=== PATIENT | male | born 2000 | race Caucasian/White ===

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

== ENCOUNTER 2020-06-26 22:31 | Emergency (ER) | payer BC ==
--- NOTE | 2020-06-27 01:02 | EDM.PDOC ---
ED HPI GENERAL MEDICAL PROBLEM - General Chief Complaint: General Stated Complaint: "doesnt feel well" Time Seen by Provider: 06/27/20 00:53 Source of Information: Reports: Patient History Limitations: Reports: No Limitations - History of Present Illness INITIAL COMMENTS - FREE TEXT/NARRATIVE: This patient is a 19 year old male that presents to the ER. Patient reports that about 3 months ago started having comes and goes right upper/lower abd pain. Patient reports that the pain comes and goes. Patient reports that he has periods of nausea with it too. Patient reports that nothing makes it better or worse. He reports that he also has vomited on occasion with it. Patient reports that today, he vomited once, but this time he had shakes with vomiting x1. This is his reason for coming to the ER tonight because he had shakes with vomiting. Patient reports that he saw Radha in the clinic today and was started on lexapro. He reports taking the medication, then shortly after vomiting. Patient denies fever. No acute abdomen. Duration: Other ("3 months") Location: Reports: Abdomen Quality: Reports: Ache Severity: Mild Improves with: Reports: None Worsens with: Reports: None Associated Symptoms: Reports: Loss of Appetite, Nausea/Vomiting. Denies: Confusion, Chest Pain, Cough, cough w sputum, Diaphoresis, Fever/Chills, Headaches, Malaise, Rash, Seizure, Shortness of Breath, Syncope, Weakness - Related Data Allergies Allergy/AdvReac Type Severity Reaction Status Date / Time No Known Allergies Allergy Verified 06/27/20 00:43 Home Meds: Home Meds Insulin Aspart [NovoLOG] 1 unit ASDIRECTED 03/28/18 [History] Escitalopram [Lexapro] 10 mg PO DAILY 06/27/20 [History] Past Medical History Musculoskeletal History: Reports: Neck Pain, Chronic Neurological History: Reports: Concussion, Headaches, Chronic Psychiatric History: Reports: Anxiety Endocrine/Metabolic History: Reports: Diabetes, Type I - Past Surgical History Musculoskeletal Surgical History: Reports: None Social & Family History - Family History Family Medical History: No Pertinent Family History - Tobacco Use Tobacco Use Status *Q: Never Tobacco User - Recreational Drug Use Recreational Drug Use: No ED ROS GENERAL - Review of Systems Review Of Systems: See Below Constitutional: Reports: Malaise, Fatigue, Decreased Appetite HEENT: Reports: No Symptoms Respiratory: Reports: No Symptoms Cardiovascular: Reports: No Symptoms Endocrine: Reports: No Symptoms GI/Abdominal: Reports: Abdominal Pain, Diarrhea, Nausea, Vomiting : Reports: No Symptoms Musculoskeletal: Reports: No Symptoms Skin: Reports: No Symptoms Neurological: Reports: Dizziness, Tremors. Denies: Confusion, Headache, Numbness, Seizure, Syncope, Tingling, Trouble Speaking, Difficulty Walking, Weakness, Change in Speech, Gait Disturbance Psychiatric: Reports: Anxiety Hematologic/Lymphatic: Reports: No Symptoms Immunologic: Reports: No Symptoms ED EXAM, GENERAL - Physical Exam Exam: See Below Exam Limited By: No Limitations General Appearance: Alert, WD/WN, No Apparent Distress, Anxious Eye Exam: Bilateral Eye: Normal Inspection, PERRL Ears: Normal External Exam, Normal Canal, Hearing Grossly Normal, Normal TMs Ear Exam: Bilateral Ear: Auricle Normal, Canal Normal, TM normal Nose: Normal Inspection, Normal Mucosa, No Blood Throat/Mouth: Normal Inspection, Normal Lips, Normal Teeth, Normal Gums, Normal Oropharynx, Normal Voice, No Airway Compromise Head: Atraumatic, Normocephalic Neck: Normal Inspection, Supple, Non-Tender, Full Range of Motion Respiratory/Chest: No Respiratory Distress, Lungs Clear, Normal Breath Sounds, No Accessory Muscle Use Cardiovascular: Normal Peripheral Pulses, Regular Rate, Rhythm, No Edema, No Gallop, No JVD, No Murmur, No Rub Peripheral Pulses: 2+: Radial (L), Radial (R), Posterior Tibial (L), Posterior Tibial (R) GI/Abdominal: Normal Bowel Sounds, Soft, Non-Tender, No Organomegaly, No Distention, No Abnormal Bruit, No Mass, Pelvis Stable. No: Distended, Guarding, Rigid, Rebound, Tender Back Exam: Normal Inspection, Full Range of Motion Extremities: Normal Inspection, Normal Range of Motion, Non-Tender, No Pedal Edema, Normal Capillary Refill Neurological: Alert, Oriented, Normal Cognition, Normal Gait Psychiatric: Anxious Skin Exam: Warm, Dry, Intact, Normal Color, No Rash Lymphatic: No Adenopathy Course - Vital Signs Last Recorded V/S: Last Vital Signs Temp 98.5 F 06/27/20 00:30 Pulse 83 06/27/20 00:30 Resp 18 06/27/20 00:30 BP 158/102 H 06/27/20 00:59 Pulse Ox 96 06/27/20 00:30 - Orders/Labs/Meds Labs: Laboratory Tests 06/26/20 06/27/20 06/27/20 Range/Units 22:50 00:55 00:55 WBC 7.0 (5.0-10.0) 10^3/uL RBC 5.51 (4.50-6.00) 10^6/uL Hgb 16.7 (14.0-18.0) g/dL Hct 47.3 (40.0-54.0) % MCV 85.8 (82.0-94.0) fL MCH 30.3 (27.0-32.0) pg MCHC 35.3 (33.0-38.0) g/dL RDW Coeff of Judi 11.6 (11.0-15.0) % Plt Count 298 (150-400) 10^3/uL Neut % (Auto) 65.5 (35-85) % Lymph % (Auto) 25.5 (10-55) % Luna % (Auto) 7.8 (0-16) % Eos % (Auto) 0.6 (0-5) % Baso % (Auto) 0.6 (0-3) % Neut # (Auto) 4.60 (1.80-7.00) 10^3/uL Lymph # (Auto) 1.79 (1.00-4.80) 10^3/uL Luna # (Auto) 0.55 (0.00-0.80) 10^3/uL Eos # (Auto) 0.04 (0.00-0.45) 10^3/uL Baso # (Auto) 0.04 10^3/uL Sodium 136 (136-145) mEq/L Potassium 4.1 (3.5-5.0) mEq/L Chloride 99 (98-106) mEq/L Carbon Dioxide 26 (21-32) mmol/L BUN 14 (7-18) mg/dL Creatinine 0.9 (0.7-1.3) mg/dL Est Cr Clr Drug Dosing 126.00 mL/min Estimated GFR (MDRD) > 60 (>=60) mL/min Glucose 212 H (75-99) mg/dL Calcium 9.2 (8.4-10.1) mg/dL Total Bilirubin 1.1 H (0.0-1.0) mg/dL AST 21 (15-37) U/L ALT 27 (12-78) U/L Alkaline Phosphatase 90 (46-116) U/L Total Protein 8.7 H (6.4-8.2) g/dL Albumin 5.1 H (3.4-5.0) g/dL Amylase 35 (25-115) U/L Lipase 51 L (73-393) U/L SARS CoV-2 RNA Rapid ADELINE Negative (NEGATIVE) - Re-Assessments/Exams Free Text/Narrative Re-Assessment/Exam: 06/27/20 01:34 Discussed patient labs with him and need for further evaluation if problems persist. Departure - Departure Time of Disposition: 01:34 Disposition: Home, Self-Care 01 Condition: Good Clinical Impression: Vomiting Qualifiers: Vomiting type: unspecified Vomiting Intractability: non-intractable Nausea presence: with nausea Qualified Code(s): R11.2 - Nausea with vomiting, unspecified - Discharge Information *PRESCRIPTION DRUG MONITORING PROGRAM REVIEWED*: Not Applicable *COPY OF PRESCRIPTION DRUG MONITORING REPORT IN PATIENT [place]: Not Applicable Instructions: Nausea and Vomiting, Adult, [id number] Referrals: PCP,None [Primary Care Provider] - Forms: ED Department Discharge Additional Instructions: Followup with your primary care provider for further evaluation Return to the ER for worsening of condition or any emergent concerns Sepsis Event Note (ED) - Evaluation Sepsis Screening Result: No Definite Risk - Focused Exam Vital Signs: Vital Signs Temp Pulse Resp BP Pulse Ox 06/27/20 00:59 158/102 H 06/27/20 00:30 98.5 F 83 18 158/104 H 96 - Assessment/Plan Plan: PLEASE SEE RN NOTE FOR PFSH
[2020-06-27 01:29] LABS: CHLORIDE,CL 99 mEq/L (98-106); SODIUM,NA 136 mEq/L (136-145)
== END 2020-06-27 01:40 | disposition home or self-care (01) ==
LOC: CC.ED 22:31
DX: R11.2 Nausea with vomiting, unspecified (principal); F41.9 Anxiety disorder, unspecified; E10.9 Type 1 diabetes mellitus without complications; Z20.828 Contact with and (suspected) exposure to other viral communicable diseases; Z79.899 Other long term (current) drug therapy
CPT/HCPCS: 36415; 80053; 82150; 83690; 85025; 99284; U0002

== ENCOUNTER 2022-09-10 13:28 | Emergency (ER) | payer SELFPAY ==
[2022-09-10] MEDS: Mupirocin Oint 22 GM Tube TOP ONE (13:44)
== END 2022-09-10 14:25 | disposition home or self-care (01) ==
LOC: CC.ED 13:28
DX: B00.9 Herpesviral infection, unspecified (principal); A48.8 Other specified bacterial diseases; E10.9 Type 1 diabetes mellitus without complications
CPT/HCPCS: 99283; A9270-GY

== ENCOUNTER 2022-10-16 03:06 | Emergency (ER) | payer SELFPAY ==
[2022-10-16 03:11] VITALS: BP 131/84; PULSE 90
[2022-10-16] MEDS: Sodium Chloride 0.9% 1,000 ML IV ONE (03:25)
[2022-10-16] MEDS: Ondansetron 4 MG/2 ML SDV IVPUSH ONE (03:36)
== END 2022-10-16 04:32 | disposition home or self-care (01) ==
LOC: CC.ED 03:06
DX: F10.929 Alcohol use, unspecified with intoxication, unspecified (principal); E10.9 Type 1 diabetes mellitus without complications; Y90.6 Blood alcohol level of 120-199 mg/100 ml
CPT/HCPCS: 36415; 80053; 80307; 96361; 96374; 99283; 99284-25; J2405; J7030

== ENCOUNTER 2023-04-17 23:10 | Emergency (ER) | payer BC, OTHER ==
[2023-04-17] MEDS: Acetaminophen/HYDROcodone 325-5 MG Tab PO ONE (23:35)
[2023-04-17] MEDS: Orphenadrine 60 MG/2 ML Inj IM ONE (23:36)
[2023-04-17] MEDS: Ketorolac 30 MG/ML SDV IM ONE (23:37)
[2023-04-18] MEDS: Take Home: Cyclobenzaprine 10 MG Tab, 4 Tab Pack PO ONE (00:22)
[2023-04-18] MEDS: Take Home: Acetaminophen/HYDROcodone 325-5 MG, 2 Tab Pack PO ONE (00:22)
[2023-04-18] MEDS: Lidocaine 5% 700 MG Patch TRDERM ONE (00:24)
== END 2023-04-18 00:36 | disposition home or self-care (01) ==
LOC: CC.ED 23:10
DX: S39.012A Strain of muscle, fascia and tendon of lower back, initial encounter (principal); E10.9 Type 1 diabetes mellitus without complications; X50.1XXA Overexertion from prolonged static or awkward postures, initial encounter; Y93.B9 Activity, other involving muscle strengthening exercises
CPT/HCPCS: 96372; 99283; A9270-GY; J1885; J2360

== ENCOUNTER 2024-11-18 22:14 | Emergency (ER) | payer OTHER ==
[2024-11-18] MEDS: Sodium Chloride 0.9% 1,000 ML IV ONE (22:25)
[2024-11-18] MEDS: Ondansetron 4 MG/2 ML SDV IVPUSH STA (22:25)
[2024-11-18 22:36] LABS: BASOPHILS ABSOLUTE AUTO 0.02 10^3/uL (0.00-0.50); BASOPHILS PERCENT AUTO 0.3 % (0-1); EOSINOPHILS ABSOLUTE AUTO 0.05 10^3/uL (0.00-1.50); EOSINOPHILS PERCENT AUTO 0.6 % (0-6); HEMATOCRIT 40.7 % (42.0-52.0); HEMOGLOBIN 14.2 g/dL (14.0-18.0); IMMATURE GRAN ABSOLUTE AUTO 0.01 10^3/uL (0.00-0.49); IMMATURE GRAN PERCENT AUTO 0.1 % (0.0-4.9); LYMPHOCYTES ABSOLUTE AUTO 1.32 10^3/uL (0.60-5.00); LYMPHOCYTES PERCENT AUTO 17.1 % (24-44); MEAN CORPUSCULAR HEMOGLOBIN 29.5 pg (27.0-32.0); MEAN CORPUSCULAR HGB CONC 34.9 g/dL (32.0-36.0); MEAN CORPUSCULAR VOLUME 84.6 fL (83.0-97.0); MONOCYTES ABSOLUTE AUTO 0.76 10^3/uL (0.00-1.50); MONOCYTES PERCENT AUTO 9.8 % (0-10); NEUTROPHILS ABSOLUTE AUTO 5.58 x10^3/uL (1.80-8.00); NEUTROPHILS PERCENT AUTO 72.1 % (41-71); PLATELET COUNT,PLT 223 10^3/uL (150-400); RED BLOOD CELL COUNT 4.81 x10^6/uL (4.50-6.00); WHITE BLOOD CELL COUNT,WBC 7.7 10^3/uL (4.0-11.0)
[2024-11-18 22:50] LABS: ALANINE AMINOTRANSFERASE,ALT 34 U/L (12-78); ALBUMIN 4.4 g/dL (3.4-5.0); ALKALINE PHOSPHATASE 76 U/L (46-116); ASPARTATE AMNIOTRANSFERASE,AST 23 U/L (15-37); BILIRUBIN TOTAL 0.8 mg/dL (0.0-1.0); BLOOD UREA NITROGEN,BUN 13 mg/dL (7-18); C-REACTIVE PROTEIN < 0.50 mg/dL (<=0.50); CALCIUM 9.2 mg/dL (8.4-10.1); CARBON DIOXIDE,CO2 28 mmol/L (21-32); CHLORIDE,CL 103 mEq/L (98-106); ESTIMATED GFR 107 mL/min (>=60); GLUCOSE RANDOM 127 mg/dL (75-99); POTASSIUM,K 3.8 mEq/L (3.5-5.0); PROTEIN TOTAL,TP 7.5 g/dL (6.4-8.2); SODIUM,NA 143 mEq/L (136-145)
[2024-11-18] MEDS: Take Home: Ondansetron 4 MG Tab.DIS, 2 Tab Pack PO ONE (23:59)
== END 2024-11-18 23:55 | disposition home or self-care (01) ==
LOC: CC.ED 22:14
DX: E86.0 Dehydration (principal); E10.9 Type 1 diabetes mellitus without complications; Z79.4 Long term (current) use of insulin
CPT/HCPCS: 36415; 80053; 83605; 85025; 86140; 96361; 96374; 99284-25; A9270-GY; J2405; J7030